=== PATIENT | female | born 1975 | race Caucasian/White ===

== ENCOUNTER 2018-02-10 14:50 | Emergency (ER) | payer MEDICAID ==
[~2018-02-10] VITALS: Ht 152.4 cm; Wt 105.0 kg
[2018-02-10 16:25] LABS: BASOPHILS % (AUTO) 0.1 % (0-1); EOSINOPHILS # (AUTO) 0.6 X10'3 (0-0.9); EOSINOPHILS % (AUTO) 5.3 % (0-6); HEMATOCRIT 37.3 % (35.0-45.0); HEMOGLOBIN 12.8 g/dl (12.0-16.0); LYMPHOCYTES # (AUTO) 2.4 X10'3 (1.1-4.8); LYMPHOCYTES % (AUTO) 20.9 % (21-51); MEAN CORPUSCULAR HEMOGLOBIN 28.8 PG (27.0-31.0); MEAN CORPUSCULAR HGB CONC 34.2 % (33.0-36.5); MEAN CORPUSCULAR VOLUME 84.1 FL (78-98); MEAN PLATELET VOLUME 7.5 FL (7.4-10.4); MONOCYTES # (AUTO) 0.6 X10'3 (0-0.9); MONOCYTES % (AUTO) 5.2 % (2-12); NEUTROPHILS # (AUTO) 7.8 X10'3 (1.8-7.7); NEUTROPHILS % (AUTO) 68.5 % (42-75); PLATELET COUNT 299 X10'3 (140-440); RED BLOOD COUNT 4.43 X10'6 (4.20-5.60); RED CELL DISTRIBUTION WIDTH 15.1 % (11.5-14.5); WHITE BLOOD COUNT 11.4 X10'3 (4.5-11.0)
[2018-02-10 16:40] LABS: ALANINE AMINOTRANSFERASE 51 U/L (12-78); ALBUMIN 3.7 G/DL (3.4-5.0); ALBUMIN/GLOBULIN RATIO 0.9 (1.1-1.5); ALKALINE PHOSPHATASE 45 IU/L (46-116); ANION GAP 13 (8-16); ASPARTATE AMINO TRANSFERASE 40 U/L (10-37); BILIRUBIN,TOTAL 0.5 MG/DL (0.1-1.0); BLOOD UREA NITROGEN 16 MG/DL (7-18); BUN/CREATININE RATIO 18.6 (6.6-38.0); CALCIUM 9.3 MG/DL (8.5-10.1); CHLORIDE 106 MMOL/L (99-107); CREATININE 0.86 MG/DL (0.40-0.90); GLUCOSE 109 MG/DL (70-104); MAGNESIUM 1.7 MG/DL (1.5-2.4); POTASSIUM 3.3 MMOL/L (3.5-5.1); SODIUM 143 MMOL/L (135-145); TOTAL CARBON DIOXIDE 24.3 MMOL/L (24-32); TOTAL PROTEIN 7.7 G/DL (6.4-8.2); eGFR 73 ML/MIN
[2018-02-10 17:00] LABS: HCG SERUM QL NEGATIVE
[2018-02-10] MEDS ORDERED: potassium Cl oral solution 20 MEQ/15 ML PO ONE (17:20)
[2018-02-10] MEDS ORDERED: GABA-532 PO (17:45)
[2018-02-10 18:01] VITALS: BP 187/108
== END 2018-02-10 18:03 | disposition home or self-care (01) ==
LOC: ER 14:51
DX: E87.6 Hypokalemia (principal); M79.605 Pain in left leg; M79.604 Pain in right leg; I10 Essential (primary) hypertension; Z86.73 Personal history of transient ischemic attack (TIA), and cerebral infarction without residual deficits; Z90.710 Acquired absence of both cervix and uterus; Z88.6 Allergy status to analgesic agent; Z79.899 Other long term (current) drug therapy
CPT/HCPCS: 36415; 80053; 83735; 84703; 85025; 99284

== ENCOUNTER 2019-07-03 11:06 | Outpatient (CLI) | payer MEDICAID ==
[~2019-07-03 11:06] MED LIST: GABA-532 PO
== END 2019-07-03 23:59 | disposition home or self-care (01) ==
LOC: RAD 11:06
PROVIDERS: ATTEND Family Medicine
DX: R56.9 Unspecified convulsions (principal); F41.9 Anxiety disorder, unspecified; F31.9 Bipolar disorder, unspecified
CPT/HCPCS: 95816

== ENCOUNTER 2019-07-20 13:00 | Emergency (ER) | payer MEDICAID ==
[~2019-07-20] VITALS: Ht 152.4 cm; Wt 92.0 kg
[2019-07-20 13:48] LABS: ALANINE AMINOTRANSFERASE 21 U/L (12-78); ALBUMIN 3.5 G/DL (3.4-5.0); ALKALINE PHOSPHATASE 39 IU/L (46-116); ANION GAP 12 (8-16); ASPARTATE AMINO TRANSFERASE 12 U/L (10-37); BILIRUBIN,TOTAL 0.5 MG/DL (0.1-1.0); BLOOD UREA NITROGEN 12 MG/DL (7-18); BUN/CREATININE RATIO 14.1 (6.6-38.0); CALCIUM 8.4 MG/DL (8.5-10.1); CHLORIDE 106 MMOL/L (99-107); CREATININE 0.85 MG/DL (0.40-0.90); GLUCOSE 97 MG/DL (70-104); POTASSIUM 2.5 MMOL/L (3.5-5.1); SODIUM 145 MMOL/L (135-145); TOTAL CARBON DIOXIDE 27.4 MMOL/L (24-32); eGFR 73 ML/MIN
[2019-07-20] MEDS ORDERED: POTASSIUM BICARB 20meq eff tab 20 MEQ TABLET.EFF PO ONE (13:55)
[2019-07-20 14:07] LABS: MAGNESIUM 1.2 MG/DL (1.5-2.4)
[2019-07-20] MEDS: potassium Cl 10 mEq/100mL bag IV SCH ×2 (14:19→15:44)
--- NOTE | 2019-07-20 14:20 | NUR ---
DR MAHER INFORMED OF BP
[2019-07-20] MEDS ORDERED: magnesium 2GM in 50ml NS 50 ML IV ONE (15:05)
[2019-07-20] MEDS ORDERED: MAGN500C16 PO (15:10)
[2019-07-20] MEDS ORDERED: enalaprilat dihydrate 2.5mg/2ml vial IV ONE (17:10)
[2019-07-20 17:32] VITALS: BP 195/113
== END 2019-07-20 17:40 | disposition home or self-care (01) ==
LOC: ER 13:01
DX: E87.6 Hypokalemia (principal); E83.42 Hypomagnesemia; R19.7 Diarrhea, unspecified; I10 Essential (primary) hypertension; F32.9 Major depressive disorder, single episode, unspecified; Z86.73 Personal history of transient ischemic attack (TIA), and cerebral infarction without residual deficits; Z90.710 Acquired absence of both cervix and uterus; Z88.6 Allergy status to analgesic agent; Z79.899 Other long term (current) drug therapy
CPT/HCPCS: 36415; 80053; 83735; 96365; 96366; 96368; 96375; 99283; J3475; J3480

== ENCOUNTER 2019-08-17 17:16 | Inpatient (IN) | payer MEDICAID ==
[~2019-08-17] VITALS: Ht 154.9 cm; Wt 80.0 kg
[~2019-08-17 17:16] MED LIST changes: +MAGN500C16 PO
[2019-08-17 18:12] LABS: ALANINE AMINOTRANSFERASE 22 U/L (12-78); ALBUMIN 3.7 G/DL (3.4-5.0); ALKALINE PHOSPHATASE 45 IU/L (46-116); ANION GAP 9 (8-16); ASPARTATE AMINO TRANSFERASE 15 U/L (10-37); BILIRUBIN,TOTAL 0.5 MG/DL (0.1-1.0); BLOOD UREA NITROGEN 11 MG/DL (7-18); BUN/CREATININE RATIO 12.2 (6.6-38.0); CALCIUM 8.8 MG/DL (8.5-10.1); CHLORIDE 104 MMOL/L (99-107); GLUCOSE 79 MG/DL (70-104); SODIUM 144 MMOL/L (135-145); TOTAL CARBON DIOXIDE 31.1 MMOL/L (24-32); TOTAL PROTEIN 7.5 G/DL (6.4-8.2); eGFR 68 ML/MIN
[2019-08-17 18:16] LABS: BASOPHILS # (AUTO) 0.1 X10'3 (0-0.2); BASOPHILS % (AUTO) 0.6 % (0-1); EOSINOPHILS # (AUTO) 0.2 X10'3 (0-0.9); EOSINOPHILS % (AUTO) 1.7 % (0-6); HEMATOCRIT 35.1 % (35.0-45.0); HEMOGLOBIN 12.1 g/dl (12.0-16.0); LYMPHOCYTES % (AUTO) 34.6 % (21-51); MEAN CORPUSCULAR HEMOGLOBIN 29.2 PG (27.0-31.0); MEAN CORPUSCULAR HGB CONC 34.4 g/dL (33.0-36.5); MEAN CORPUSCULAR VOLUME 84.9 FL (78-98); MEAN PLATELET VOLUME 7.4 FL (7.4-10.4); MONOCYTES # (AUTO) 0.6 X10'3 (0-0.9); NEUTROPHILS # (AUTO) 6.7 X10'3 (1.8-7.7); NEUTROPHILS % (AUTO) 58.1 % (42-75); PLATELET COUNT 328 X10'3 (140-440); RED BLOOD COUNT 4.13 X10'6 (4.20-5.60); WHITE BLOOD COUNT 11.5 X10'3 (4.5-11.0)
[2019-08-17 18:18] LABS: POTASSIUM 2.3 MMOL/L (3.5-5.1)
[2019-08-17] MEDS ORDERED: potassium Cl 20 mEq SR tablet PO STA (18:20)
[2019-08-17] MEDS ORDERED: potassium 10mEq/100ml NS w/LIDOcaine (10mg/bag) IV SCH (19:35)
[2019-08-17] MEDS ORDERED: magnesium 2GM in 50ml NS 50 ML IV SCH (19:35)
[2019-08-17] MEDS ORDERED: potassium Cl 20 mEq SR tablet PO ONE (19:35)
[2019-08-17] MEDS ORDERED: potassium CL 10mEq/100ml bag 100 ML IV ONE (19:40)
[2019-08-17 19:42] LABS: MAGNESIUM 1.4 MG/DL (1.5-2.4)
[2019-08-17] MEDS ORDERED: acetaminophen 325mg tablet PO ONE (21:05)
[2019-08-17] MEDS ORDERED: POTA20TA19 PO (23:04)
--- NOTE | 2019-08-17 23:41 | NUR ---
UNABLE TO COMPLETE MED REC, PT DOES NOT RECALL HOME MEDICATIONS
[2019-08-18] MEDS ORDERED: magnesium 2GM in 50ml NS 50 ML IV PRN (02:25)
[2019-08-18] MEDS ORDERED: dextrose ORAL solution 15 GM/59 ML bottle PO PRN ×2 (02:25)
[2019-08-18] MEDS ORDERED: dextrose 50%-water 50ml dispensing syringe IV PRN ×2 (02:25)
[2019-08-18] MEDS ORDERED: acetaminophen 325mg tablet PO PRN (02:25)
[2019-08-18] MEDS ORDERED: glucagon, human recombinant 1mg kit SUBCUT PRN (02:25)
[2019-08-18] MEDS ORDERED: insulin Lispro (HumaLOG) vial - multi-dose SQ SCH (02:25)
[2019-08-18] MEDS ORDERED: potassium CL 10mEq/100ml bag 100 ML IV PRN ×2 (02:25)
[2019-08-18] MEDS ORDERED: MESSAGE TO PHARMACY PO ONE (02:25)
[2019-08-18] MEDS ORDERED: magnesium 4gm in 100ml NS 100 ML IV PRN (02:25)
[2019-08-18] MEDS ORDERED: potassium Cl 20 mEq SR tablet PO PRN (02:25)
[2019-08-18] MEDS ORDERED: magnesium Cl slow-release 64mg tablet PO PRN (02:25)
[2019-08-18] MEDS ORDERED: ondansetron/PF 4mg/2ml inj IV PRN (02:25)
[2019-08-18] MEDS ORDERED: magnesium hydroxide 30ml (MOM) UD suspension PO PRN (02:25)
[2019-08-18] MEDS ORDERED: mag hydrox/Alum hydrox/simeth 30ml oral suspension PO PRN (02:25)
[2019-08-18] MEDS: potassium Cl 20mEq in NS 1,000 ML IV SCH ×3 (02:47→22:01)
[2019-08-18 02:52] LABS: HEMOGLOBIN A1C 5.7 % (4.5-6.2)
--- NOTE | 2019-08-18 03:05 | NUR ---
Received report from ED from JOSE DANIEL Foley.
--- NOTE | 2019-08-18 03:20 | NUR ---
Pt brought to the floor via gurney, ambulated to bed, assumed patient care.
[2019-08-18 03:45] VITALS: BP 183/100
[2019-08-18 06:00] VITALS: BP 178/92
--- NOTE | 2019-08-18 06:26 | NUR ---
Report given to JOSE DANIEL Corbett.
--- NOTE | 2019-08-18 06:40 | NUR ---
Patient in room [facility]TH[facility] 4015. I have received report from Rachel SKY and had the opportunity to ask questions and assume patient care.
[2019-08-18] MEDS: K and/or MAG REPLACEMENT MC SCH (07:04)
[2019-08-18] MEDS: gabapentin 300mg capsule PO SCH ×3 (07:14→20:05)
[2019-08-18] MEDS: magnesium oxide 400mg tablet PO SCH (07:15)
[2019-08-18] MEDS: enoxaparin 40mg/0.4ml syringe SQ SCH (07:17)
[2019-08-18 10:00] VITALS: BP 175/91
[2019-08-18 10:16] LABS: BASOPHILS % (AUTO) 0.3 % (0-1); EOSINOPHILS # (AUTO) 0.2 X10'3 (0-0.9); EOSINOPHILS % (AUTO) 1.8 % (0-6); HEMOGLOBIN 11.1 g/dl (12.0-16.0); LYMPHOCYTES # (AUTO) 2.9 X10'3 (1.1-4.8); LYMPHOCYTES % (AUTO) 33.3 % (21-51); MEAN CORPUSCULAR HEMOGLOBIN 29.2 PG (27.0-31.0); MEAN CORPUSCULAR HGB CONC 34.7 g/dL (33.0-36.5); MEAN CORPUSCULAR VOLUME 84.2 FL (78-98); MEAN PLATELET VOLUME 7.3 FL (7.4-10.4); MONOCYTES # (AUTO) 0.4 X10'3 (0-0.9); MONOCYTES % (AUTO) 4.7 % (2-12); NEUTROPHILS # (AUTO) 5.2 X10'3 (1.8-7.7); NEUTROPHILS % (AUTO) 59.9 % (42-75); PLATELET COUNT 257 X10'3 (140-440); RED CELL DISTRIBUTION WIDTH 14.1 % (11.5-14.5); WHITE BLOOD COUNT 8.7 X10'3 (4.5-11.0)
[2019-08-18 10:28] LABS: ALANINE AMINOTRANSFERASE 18 U/L (12-78); ALBUMIN 3.1 G/DL (3.4-5.0); ALBUMIN/GLOBULIN RATIO 0.9 (1.1-1.5); ALKALINE PHOSPHATASE 42 IU/L (46-116); ANION GAP 4 (8-16); ASPARTATE AMINO TRANSFERASE 12 U/L (10-37); BILIRUBIN,TOTAL 0.5 MG/DL (0.1-1.0); BLOOD UREA NITROGEN 8 MG/DL (7-18); BUN/CREATININE RATIO 10.3 (6.6-38.0); CALCIUM 7.5 MG/DL (8.5-10.1); CHLORIDE 107 MMOL/L (99-107); CREATININE 0.78 MG/DL (0.40-0.90); GLUCOSE 140 MG/DL (70-104); MAGNESIUM 1.9 MG/DL (1.5-2.4); PHOSPHORUS 1.9 MG/DL (2.3-4.5); POTASSIUM 3.2 MMOL/L (3.5-5.1); SODIUM 143 MMOL/L (135-145); TOTAL CARBON DIOXIDE 31.8 MMOL/L (24-32); TOTAL PROTEIN 6.5 G/DL (6.4-8.2); eGFR 81 ML/MIN
[2019-08-18] MEDS: potassium Cl 20 mEq SR tablet PO PRN (12:05)
--- NOTE | 2019-08-18 16:30 | NUR ---
DM Consult: A1C <7 and not appropriate for DM ed at this time. Pt admit w/ chronically low potassium hx; not on any diuretics at home per EMR. Will continue to monitor. Addendum: 08/18/19 at [address] Amended: Links added.
[2019-08-18 18:00] VITALS: BP 167/102
--- NOTE | 2019-08-18 18:10 | NUR ---
Received report from JOSE DANIEL Corbett. Assumed patient care.
--- NOTE | 2019-08-18 18:22 | NUR ---
Problems reprioritized. Patient report given, questions answered & plan of care reviewed with Rachel SKY.
[2019-08-18] MEDS: insulin glargine (Lantus) pen - multi-dose SQ SCH (21:00)
[2019-08-18] MEDS: hydrALAZINE 20mg/ml inj. IV PRN (21:22)
[2019-08-18 22:00] VITALS: BP 195/103
[2019-08-18 22:45] VITALS: BP 171/86
[2019-08-19] VITALS (11 sets, daily range): BP systolic 154–200; BP diastolic 73–120
[2019-08-19 06:02] LABS: BASOPHILS % (AUTO) 0.5 % (0-1); EOSINOPHILS # (AUTO) 0.1 X10'3 (0-0.9); EOSINOPHILS % (AUTO) 1.8 % (0-6); HEMATOCRIT 31.9 % (35.0-45.0); HEMOGLOBIN 11.1 g/dl (12.0-16.0); LYMPHOCYTES # (AUTO) 2.5 X10'3 (1.1-4.8); MEAN CORPUSCULAR HEMOGLOBIN 29.5 PG (27.0-31.0); MEAN CORPUSCULAR HGB CONC 34.8 g/dL (33.0-36.5); MEAN CORPUSCULAR VOLUME 84.6 FL (78-98); MEAN PLATELET VOLUME 7.5 FL (7.4-10.4); MONOCYTES # (AUTO) 0.4 X10'3 (0-0.9); NEUTROPHILS # (AUTO) 4.6 X10'3 (1.8-7.7); NEUTROPHILS % (AUTO) 59.7 % (42-75); PLATELET COUNT 254 X10'3 (140-440); RED BLOOD COUNT 3.78 X10'6 (4.20-5.60); RED CELL DISTRIBUTION WIDTH 14.1 % (11.5-14.5); WHITE BLOOD COUNT 7.7 X10'3 (4.5-11.0)
[2019-08-19 06:20] LABS: ALANINE AMINOTRANSFERASE 18 U/L (12-78); ALBUMIN 3.1 G/DL (3.4-5.0); ALBUMIN/GLOBULIN RATIO 0.9 (1.1-1.5); ALKALINE PHOSPHATASE 40 IU/L (46-116); ANION GAP 9 (8-16); ASPARTATE AMINO TRANSFERASE 10 U/L (10-37); BILIRUBIN,TOTAL 0.6 MG/DL (0.1-1.0); BLOOD UREA NITROGEN 8 MG/DL (7-18); BUN/CREATININE RATIO 11.8 (6.6-38.0); CALCIUM 7.4 MG/DL (8.5-10.1); CHLORIDE 111 MMOL/L (99-107); CREATININE 0.68 MG/DL (0.40-0.90); GLUCOSE 106 MG/DL (70-104); MAGNESIUM 1.8 MG/DL (1.5-2.4); PHOSPHORUS 1.9 MG/DL (2.3-4.5); POTASSIUM 3.3 MMOL/L (3.5-5.1); SODIUM 145 MMOL/L (135-145); TOTAL CARBON DIOXIDE 25.2 MMOL/L (24-32); TOTAL PROTEIN 6.5 G/DL (6.4-8.2); eGFR > 90 ML/MIN
--- NOTE | 2019-08-19 06:36 | NUR ---
Patient in room [facility]TH[facility] 4015. I have received report from CHARMAINE SKY and had the opportunity to ask questions and assume patient care.
--- NOTE | 2019-08-19 06:36 | NUR ---
Patient report given, questions answered and plan of care reviewed with JOSE DANIEL Burton.
[2019-08-19] MEDS: magnesium oxide 400mg tablet PO SCH (07:21)
[2019-08-19] MEDS: gabapentin 300mg capsule PO SCH ×3 (07:22→20:49)
[2019-08-19] MEDS: potassium Cl 20 mEq SR tablet PO PRN ×3 (07:22→20:52)
[2019-08-19] MEDS: enoxaparin 40mg/0.4ml syringe SQ SCH (07:24)
[2019-08-19] MEDS: K and/or MAG REPLACEMENT MC SCH (07:34)
[2019-08-19] MEDS: potassium Cl 20mEq in NS 1,000 ML IV SCH (07:40)
[2019-08-19] MEDS: acetaminophen 325mg tablet PO PRN ×2 (08:01→21:01)
[2019-08-19] MEDS: hydrALAZINE 20mg/ml inj. IV PRN ×2 (11:15→17:22)
--- NOTE | 2019-08-19 11:44 | NUR ---
Student documentation: I have reviewed all interventions, assessments performed and documented by Aria Fraser. Student Medication Administration: For this medication-pass time frame, all medication were reviewed, dispensed, administered and documented per hospital policy by Aria Fraser.
[2019-08-19] MEDS: lisinopril 20mg tablet PO SCH (15:29)
[2019-08-19 15:31] LABS: CLARITY,URINE CLEAR (Clear); COLOR,URINE YELLOW (Yellow); GLUCOSE, URINE NEGATIVE (Neg); KETONES,URINE NEGATIVE (Neg); LEUKOCYTE ESTERASE ,URINE NEGATIVE (Neg); NITRITES, URINE NEGATIVE (Neg); OCCULT BLOOD,URINE LARGE (Neg); PH,URINE 7.5 (4.8-8.0); PROTEIN,URINE NEGATIVE (Neg); UROBILINOGEN,URINE 0.2 E.U/dL (0.2-1.0)
[2019-08-19 15:35] LABS: UA COLLECTION TYPE NON-SPECIFIED
[2019-08-19 15:42] LABS: SQUAMOUS EPITHELIAL CELL,UR FEW /LPF (FEW)
[2019-08-19 15:43] LABS: BACTERIA,URINE FEW /HPF (Neg); RBC,URINE 50-100 /HPF (0-2); WBC,URINE 0-4 /HPF (0-4)
--- NOTE | 2019-08-19 15:59 | NUR ---
SPOKE TO DR. DENIZ ACE'S NURSE RE: NEEDING UPDATED MED LIST, GAVE ORAPHAN NURSE THE FAX NUMBER FOR HER TO FAX [facility]. WILL MAKE DR. KRISHNAMURTHY AWARE ONCE UPDATED HOME MEDS ARE IN.
--- NOTE | 2019-08-19 16:05 | NUR ---
Paged hospitalist, "MAREK Adorno- Crista Ribera in 3015 A med req incomplete, I will page you once updated home meds are in."
[2019-08-19 16:23] LABS: UA EOSINOPHILS RARE EOS /HPF
--- NOTE | 2019-08-19 16:31 | NUR ---
Spoke to patient's family MD, had them fax updated med list to us. Made Dr. Montilla aware of this. Spoke to our pharmacy here, they will put in patient's med list and they are contacting Dr. Montilla once updated.
[2019-08-19] MEDS ORDERED: SPIR25TA5 PO (16:37)
[2019-08-19] MEDS ORDERED: GLIP5TAB13 PO (16:37)
[2019-08-19] MEDS ORDERED: SERT100T PO (16:37)
[2019-08-19] MEDS ORDERED: ASPI-611 PO (16:37)
[2019-08-19] MEDS ORDERED: ATOR10TA70 PO (16:37)
[2019-08-19] MEDS ORDERED: LISI40TA4 PO (16:37)
[2019-08-19] MEDS ORDERED: METF-438 PO (16:37)
[2019-08-19] MEDS ORDERED: DILT240C90 PO (16:37)
[2019-08-19] MEDS ORDERED: ARIP5TAB4 PO (16:37)
[2019-08-19] MEDS ORDERED: METO50TA17 PO (16:37)
[2019-08-19] MEDS ORDERED: POTA10TA36 PO (16:37)
--- NOTE | 2019-08-19 18:19 | NUR ---
Paged hospitalist, "Josephine [phone] Crista Ribera please complete med req at your convenience. Thank you!"
--- NOTE | 2019-08-19 18:21 | NUR ---
Problems reprioritized. Patient report given, questions answered & plan of care reviewed with Grecia SKY.
[2019-08-19] MEDS: insulin glargine (Lantus) pen - multi-dose SQ SCH (20:52)
--- NOTE | 2019-08-19 23:06 | NUR ---
GAVE DYRENIUM, BP NOW 164/85, ICE PACK TO POSTERIOR NECK, VOIDED X2. PAIN RELIEVED, TOLERABLE AT THIS TIME.
[2019-08-20] VITALS (8 sets, daily range): BP systolic 138–210; BP diastolic 71–124
[2019-08-20] MEDS: hydrALAZINE 20mg/ml inj. IV PRN ×2 (02:25→15:40)
--- NOTE | 2019-08-20 02:30 | NUR ---
GAVE DOSE OF HYDRALAZINE 10MG IV FOR BP 176/92, HR 77.
[2019-08-20 06:17] LABS: BASOPHILS % (AUTO) 0.5 % (0-1); EOSINOPHILS # (AUTO) 0.2 X10'3 (0-0.9); HEMATOCRIT 33.6 % (35.0-45.0); HEMOGLOBIN 11.6 g/dl (12.0-16.0); LYMPHOCYTES # (AUTO) 3.1 X10'3 (1.1-4.8); LYMPHOCYTES % (AUTO) 33.4 % (21-51); MEAN CORPUSCULAR HEMOGLOBIN 29.4 PG (27.0-31.0); MEAN CORPUSCULAR HGB CONC 34.4 g/dL (33.0-36.5); MEAN CORPUSCULAR VOLUME 85.6 FL (78-98); MEAN PLATELET VOLUME 7.5 FL (7.4-10.4); MONOCYTES # (AUTO) 0.5 X10'3 (0-0.9); MONOCYTES % (AUTO) 5.2 % (2-12); NEUTROPHILS # (AUTO) 5.5 X10'3 (1.8-7.7); NEUTROPHILS % (AUTO) 58.9 % (42-75); PLATELET COUNT 303 X10'3 (140-440); RED BLOOD COUNT 3.93 X10'6 (4.20-5.60); RED CELL DISTRIBUTION WIDTH 14.7 % (11.5-14.5); WHITE BLOOD COUNT 9.3 X10'3 (4.5-11.0)
[2019-08-20 06:32] LABS: ALANINE AMINOTRANSFERASE 18 U/L (12-78); ALBUMIN 3.2 G/DL (3.4-5.0); ALBUMIN/GLOBULIN RATIO 0.9 (1.1-1.5); ALKALINE PHOSPHATASE 43 IU/L (46-116); ANION GAP 12 (8-16); ASPARTATE AMINO TRANSFERASE 17 U/L (10-37); BILIRUBIN,TOTAL 0.5 MG/DL (0.1-1.0); BLOOD UREA NITROGEN 9 MG/DL (7-18); BUN/CREATININE RATIO 11.8 (6.6-38.0); CALCIUM 8.8 MG/DL (8.5-10.1); CHLORIDE 109 MMOL/L (99-107); CREATININE 0.76 MG/DL (0.40-0.90); GLUCOSE 109 MG/DL (70-104); MAGNESIUM 1.9 MG/DL (1.5-2.4); PHOSPHORUS 2.7 MG/DL (2.3-4.5); POTASSIUM 3.2 MMOL/L (3.5-5.1); SODIUM 143 MMOL/L (135-145); TOTAL CARBON DIOXIDE 22.3 MMOL/L (24-32); TOTAL PROTEIN 6.9 G/DL (6.4-8.2); eGFR 83 ML/MIN
--- NOTE | 2019-08-20 07:04 | NUR ---
REPORT GIVEN TO JOSE DANIEL TRACY.
[2019-08-20] MEDS: gabapentin 300mg capsule PO SCH ×3 (08:10→20:22)
[2019-08-20] MEDS: lisinopril 20mg tablet PO SCH (08:10)
[2019-08-20] MEDS: magnesium oxide 400mg tablet PO SCH (08:10)
[2019-08-20] MEDS: potassium Cl 20 mEq SR tablet PO PRN ×3 (08:11→19:35)
[2019-08-20] MEDS: enoxaparin 40mg/0.4ml syringe SQ SCH (08:13)
[2019-08-20] MEDS: acetaminophen 325mg tablet PO PRN ×2 (08:19→15:42)
[2019-08-20] MEDS: K and/or MAG REPLACEMENT MC SCH (08:20)
--- NOTE | 2019-08-20 16:19 | NUR ---
PAGER ID: [phone] MESSAGE: Mitzy [phone] re Crista Ribera in [id number]- did you want a ct scan w contrast? Pt has stated allergy to iodine but wants study. Premedicate with benadry? Also pt wants Ativan. Pls call me
[2019-08-20] MEDS ORDERED: LORazepam 0.5 MG tablet PO PRN (16:25)
[2019-08-20] MEDS ORDERED: diphenhydrAMINE 25mg capsule PO ONE (16:25)
[2019-08-20] MEDS ORDERED: iohexol 300mg/ml 100ml inj. ONE (16:47)
--- NOTE | 2019-08-20 17:32 | NUR ---
PAGER ID: [phone] MESSAGE: Mitzy [phone] re Crista mckeon in - bp is 200/102 after hydralazine, Ativan, Benadryl. There are meds on med rec not addressed, such as Cardizem. I got the note from Dr Fisher faxed here for your review. What do I do about the BP?
--- NOTE | 2019-08-20 18:00 | NUR ---
Received report from Mitzy SKY. assumed care of patient.
[2019-08-20] MEDS: metoprolol tartrate 50mg tablet PO SCH (19:05)
[2019-08-20] MEDS: diltiazem CD 120mg capsule (once-daily) PO SCH (19:36)
[2019-08-20] MEDS: insulin glargine (Lantus) pen - multi-dose SQ SCH (20:30)
[2019-08-21 06:00] VITALS: BP 139/75
--- NOTE | 2019-08-21 06:20 | NUR ---
Gave report to Mitzy SKY.
[2019-08-21 06:21] LABS: BASOPHILS # (AUTO) 0.1 X10'3 (0-0.2); BASOPHILS % (AUTO) 0.6 % (0-1); EOSINOPHILS # (AUTO) 0.1 X10'3 (0-0.9); EOSINOPHILS % (AUTO) 1.3 % (0-6); HEMATOCRIT 35.6 % (35.0-45.0); HEMOGLOBIN 12.1 g/dl (12.0-16.0); LYMPHOCYTES # (AUTO) 2.9 X10'3 (1.1-4.8); LYMPHOCYTES % (AUTO) 32.3 % (21-51); MEAN CORPUSCULAR HEMOGLOBIN 29.2 PG (27.0-31.0); MEAN CORPUSCULAR HGB CONC 33.8 g/dL (33.0-36.5); MEAN CORPUSCULAR VOLUME 86.3 FL (78-98); MEAN PLATELET VOLUME 7.4 FL (7.4-10.4); MONOCYTES # (AUTO) 0.5 X10'3 (0-0.9); MONOCYTES % (AUTO) 5.3 % (2-12); NEUTROPHILS # (AUTO) 5.5 X10'3 (1.8-7.7); NEUTROPHILS % (AUTO) 60.5 % (42-75); PLATELET COUNT 331 X10'3 (140-440); RED BLOOD COUNT 4.13 X10'6 (4.20-5.60); RED CELL DISTRIBUTION WIDTH 14.7 % (11.5-14.5); WHITE BLOOD COUNT 9.1 X10'3 (4.5-11.0)
[2019-08-21 06:32] LABS: ALANINE AMINOTRANSFERASE 17 U/L (12-78); ALBUMIN 3.3 G/DL (3.4-5.0); ALBUMIN/GLOBULIN RATIO 0.9 (1.1-1.5); ALKALINE PHOSPHATASE 41 IU/L (46-116); ANION GAP 8 (8-16); ASPARTATE AMINO TRANSFERASE 11 U/L (10-37); BILIRUBIN,TOTAL 0.5 MG/DL (0.1-1.0); BLOOD UREA NITROGEN 18 MG/DL (7-18); BUN/CREATININE RATIO 20.7 (6.6-38.0); CALCIUM 8.8 MG/DL (8.5-10.1); CHLORIDE 108 MMOL/L (99-107); CREATININE 0.87 MG/DL (0.40-0.90); GLUCOSE 109 MG/DL (70-104); MAGNESIUM 1.8 MG/DL (1.5-2.4); PHOSPHORUS 3.7 MG/DL (2.3-4.5); POTASSIUM 3.6 MMOL/L (3.5-5.1); SODIUM 138 MMOL/L (135-145); TOTAL CARBON DIOXIDE 21.9 MMOL/L (24-32); eGFR 71 ML/MIN
[2019-08-21] MEDS: K and/or MAG REPLACEMENT MC SCH (06:45)
[2019-08-21] MEDS: metoprolol tartrate 50mg tablet PO SCH (07:58)
[2019-08-21] MEDS: magnesium oxide 400mg tablet PO SCH (07:58)
[2019-08-21] MEDS: lisinopril 20mg tablet PO SCH (07:58)
[2019-08-21] MEDS: gabapentin 300mg capsule PO SCH ×2 (07:58→13:21)
[2019-08-21] MEDS: enoxaparin 40mg/0.4ml syringe SQ SCH (07:59)
[2019-08-21] MEDS: diltiazem CD 120mg capsule (once-daily) PO SCH (08:00)
[2019-08-21] MEDS ORDERED: aripiprazole 5mg tablet PO SCH (08:00)
[2019-08-21] MEDS ORDERED: diltiazem CD 120mg capsule (once-daily) PO SCH ×2 (08:00→20:00)
[2019-08-21] MEDS: acetaminophen 325mg tablet PO PRN (08:07)
[2019-08-21 10:00] VITALS: BP 139/75
--- NOTE | 2019-08-21 12:29 | NUR ---
PAGER ID: [phone] MESSAGE: Mitzy [phone] re Crista Ribera in [id number]- her current bp is 126/75 HR 55. I held the Cardizem this am since it is Q24 and she started it last night. Do you want me to give it or reschedule for tonight? ALso, can we start her Zoloft 200 mg too?
[2019-08-21 12:30] VITALS: BP 126/75
[2019-08-21] MEDS ORDERED: sertraline 50mg tablet PO SCH (13:00)
[2019-08-21] MEDS ORDERED: POTA10TA36 PO (16:41)
[2019-08-21] MEDS ORDERED: SERT50TA10 PO (16:41)
[2019-08-21] MEDS ORDERED: METO25TA6 PO (16:41)
[2019-08-21] MEDS ORDERED: DYR50C PO (16:41)
[2019-08-21] MEDS ORDERED: METF-950 PO (16:56)
== END 2019-08-21 17:30 | disposition home or self-care (01) | DRG 425 ==
LOC: ER 17:17 → ED HOLD 08-18 03:21 → ORTHO 4S 08-18 03:30 → CMPBEDREQ 08-18 03:46 → OBSVTOIN 08-18 14:45
PROVIDERS: ADMIT Family Medicine; ATTEND Internal Medicine
PROC: BW211ZZ Computerized Tomography (CT Scan) of Abdomen and Pelvis using Low Osmolar Contrast (ICD-10-PCS; principal; 2019-08-20)
DX: E87.6 Hypokalemia (principal); E87.3 Alkalosis; E11.9 Type 2 diabetes mellitus without complications; F32.9 Major depressive disorder, single episode, unspecified; E66.9 Obesity, unspecified; E78.5 Hyperlipidemia, unspecified; E87.5 Hyperkalemia; F41.9 Anxiety disorder, unspecified; I10 Essential (primary) hypertension; I69.341 Monoplegia of lower limb following cerebral infarction affecting right dominant side; Z90.710 Acquired absence of both cervix and uterus; Z91.041 Radiographic dye allergy status; Z68.33 Body mass index [BMI] 33.0-33.9, adult; Z98.891 History of uterine scar from previous surgery
CPT/HCPCS: 36415; 71045; 74177; 76775; 80053; 81001; 82436; 82570; 82948; 83036; 83735; 83935; 84100; 84132; 84133; 84156; 84300; 85025; 87081; 87207; 93005; 96365; 96366; 96368; 96372; 99285; G0378; J0360; J1650; J1815; J3475; J3480; Q0163; Q9967

== ENCOUNTER → 2019-09-11 | Emergency (ER) | payer MEDICAID ==
[~2019-09-11] VITALS: Ht 172.7 cm; Wt 94.0 kg
[~2019-09-11] MED LIST changes: +ARIP5TAB14 PO; +ASPI-611 PO; +ATOR10TA70 PO; +DILT240C90 PO; +DYR50C PO; +LISI40TA4 PO; +LORazepam 1 MG tablet PO ONE; +METF-950 PO; +METO25TA6 PO; +POTA10TA36 PO; +SERT50TA10 PO; +cloNIDine 0.1 mg tablet PO STA; +hydrALAZINE 25 MG tablet PO SCH; +hydrALAZINE 25 MG tablet PO STA; +labetalol 20mg/4ml (5mg/ml) syringe IV ONE; +metoprolol tartrate 50mg tablet PO ONE; +potassium Cl 20 mEq SR tablet PO STA
[2019-09-11 04:32] LABS: BASOPHILS # (AUTO) 0.1 X10'3 (0-0.2); BASOPHILS % (AUTO) 0.7 % (0-1); EOSINOPHILS # (AUTO) 0.2 X10'3 (0-0.9); EOSINOPHILS % (AUTO) 1.6 % (0-6); HEMOGLOBIN 12.2 g/dl (12.0-16.0); LYMPHOCYTES # (AUTO) 3.7 X10'3 (1.1-4.8); LYMPHOCYTES % (AUTO) 30.3 % (21-51); MEAN CORPUSCULAR HEMOGLOBIN 28.7 PG (27.0-31.0); MEAN CORPUSCULAR HGB CONC 34.7 g/dL (33.0-36.5); MEAN CORPUSCULAR VOLUME 82.8 FL (78-98); MEAN PLATELET VOLUME 7.1 FL (7.4-10.4); MONOCYTES # (AUTO) 0.7 X10'3 (0-0.9); NEUTROPHILS # (AUTO) 7.6 X10'3 (1.8-7.7); NEUTROPHILS % (AUTO) 61.4 % (42-75); PLATELET COUNT 355 X10'3 (140-440); RED BLOOD COUNT 4.23 X10'6 (4.20-5.60); WHITE BLOOD COUNT 12.3 X10'3 (4.5-11.0)
--- NOTE | 2019-09-11 04:38 | NUR ---
PIV PLACED, LABS DRAWN, BP 217/115. GIVEN ATIVAN 2 MG TABS AND HYDRALAZINE 25 MG TABS. PT IS POLITE AND COOPERATIVE WITH CARE.
[2019-09-11 04:44] LABS: ALANINE AMINOTRANSFERASE 20 U/L (12-78); ALBUMIN 3.6 G/DL (3.4-5.0); ALBUMIN/GLOBULIN RATIO 0.9 (1.1-1.5); ALKALINE PHOSPHATASE 50 IU/L (46-116); ANION GAP 6 (8-16); ASPARTATE AMINO TRANSFERASE 16 U/L (10-37); BILIRUBIN,TOTAL 0.5 MG/DL (0.1-1.0); BLOOD UREA NITROGEN 16 MG/DL (7-18); BUN/CREATININE RATIO 17.2 (6.6-38.0); CALCIUM 8.9 MG/DL (8.5-10.1); CHLORIDE 103 MMOL/L (99-107); CREATININE 0.93 MG/DL (0.40-0.90); GLUCOSE 173 MG/DL (70-104); SODIUM 141 MMOL/L (135-145); TOTAL CARBON DIOXIDE 32.4 MMOL/L (24-32); TOTAL PROTEIN 7.6 G/DL (6.4-8.2); eGFR 66 ML/MIN
[2019-09-11 04:47] LABS: POTASSIUM 2.8 MMOL/L (3.5-5.1)
--- NOTE | 2019-09-11 05:02 | NUR ---
DR. DIAZ AT BEDSIDE FOR REEVAL. MINIMAL CHANGE TO BP. NEW ORDERS FOR HYDRALAZINE 25 MG TAB (AGAIN), METOPROLOL 50 MG TAB, AND KDUR 40 MEQ FOR K OF 2.8. PT UP TO BR WITH SBA,
--- NOTE | 2019-09-11 05:59 | NUR ---
DR. DIAZ UPDATED LAKISHA PT CURRENTLY SLEEPING, BP REMAINS HIGH, 212/124. CLONADINE TAB NOW ORDERED
--- NOTE | 2019-09-11 06:42 | NUR ---
PT RESTING IN POC. MD OHLFS AT BEDSIDE. NEW ORDERS RECEIVED AND IN PROCESS.
--- NOTE | 2019-09-11 07:20 | NUR ---
PT JUST UP TO BR WITHOUT UA OBTAINED, ADVISED.
[2019-09-11 08:34] VITALS: BP 150/80
== END | disposition home or self-care (01) ==
LOC: ER 03:49
DX: F41.9 Anxiety disorder, unspecified (principal); I10 Essential (primary) hypertension; E11.9 Type 2 diabetes mellitus without complications; F32.9 Major depressive disorder, single episode, unspecified; Z86.73 Personal history of transient ischemic attack (TIA), and cerebral infarction without residual deficits; Z90.710 Acquired absence of both cervix and uterus; Z98.890 Other specified postprocedural states; Z91.041 Radiographic dye allergy status; Z79.82 Long term (current) use of aspirin; Z79.899 Other long term (current) drug therapy
CPT/HCPCS: 36415; 80053; 85025; 96374; 99284; J3490

== ENCOUNTER 2019-10-03 15:32 | Emergency (ER) | payer MEDICAID ==
[~2019-10-03] VITALS: Ht 152.4 cm; Wt 90.7 kg
[~2019-10-03 15:32] MED LIST changes: +LIDOcaine 1% 30ml preserv. free vial ONE; -LORazepam 1 MG tablet PO ONE; -cloNIDine 0.1 mg tablet PO STA; -hydrALAZINE 25 MG tablet PO SCH; -hydrALAZINE 25 MG tablet PO STA; -labetalol 20mg/4ml (5mg/ml) syringe IV ONE; -metoprolol tartrate 50mg tablet PO ONE; -potassium Cl 20 mEq SR tablet PO STA
[2019-10-03] MEDS ORDERED: ondansetron 4mg rapidly disintigrating tab PO ONE (16:25)
[2019-10-03] MEDS ORDERED: ketorolac trometh inj. 60 MG/2 ML VIAL IM ONE (16:25)
[2019-10-03] MEDS ORDERED: HYDROcodone/acetaminophen 5mg/325mg tablet PO ONE (16:25)
[2019-10-03] MEDS ORDERED: TETanus/Pertussis (Acell)/Diphther VAC/PF (Tdap-Adult) 0.5ml syringe IMVAC ONE (16:30)
[2019-10-03] MEDS ORDERED: SULF1TAB49 PO (16:37)
[2019-10-03] MEDS ORDERED: CEPH500C5 PO (16:37)
[2019-10-03] MEDS ORDERED: HYDR-4383 PO (17:50)
[2019-10-03] MEDS ORDERED: cephalexin 250mg capsule PO ONE (18:00)
[2019-10-03] MEDS ORDERED: sulfamethoxazole/trimethoprim DS (800/160mg) tablet PO ONE (18:00)
[2019-10-03 19:30] VITALS: BP 170/87
== END 2019-10-03 19:30 | disposition home or self-care (01) ==
LOC: ER 15:33
DX: N76.4 Abscess of vulva (principal); I10 Essential (primary) hypertension; E11.9 Type 2 diabetes mellitus without complications; F32.9 Major depressive disorder, single episode, unspecified; Z90.710 Acquired absence of both cervix and uterus; Z86.73 Personal history of transient ischemic attack (TIA), and cerebral infarction without residual deficits; Z98.890 Other specified postprocedural states; Z91.041 Radiographic dye allergy status; Z79.82 Long term (current) use of aspirin; Z79.899 Other long term (current) drug therapy
CPT/HCPCS: 56405; 90471; 90715; 96372; 99284; J1885; J2001

== ENCOUNTER 2019-10-07 22:07 | Emergency (ER) | payer MEDICAID ==
[~2019-10-07] VITALS: Ht 152.4 cm; Wt 90.0 kg
[~2019-10-07 22:07] MED LIST changes: +CEPH500C5 PO; +HYDR-4383 PO; -LIDOcaine 1% 30ml preserv. free vial ONE; +SULF1TAB49 PO
[2019-10-07 23:05] VITALS: BP 172/96
--- NOTE | 2019-10-07 23:07 | NUR ---
CHAPERONED DR DIAZ FOR PT EXAM
== END 2019-10-07 23:29 | disposition home or self-care (01) ==
LOC: ER 22:08
DX: Z48.00 Encounter for change or removal of nonsurgical wound dressing (principal); I10 Essential (primary) hypertension; E11.9 Type 2 diabetes mellitus without complications; F32.9 Major depressive disorder, single episode, unspecified; Z90.710 Acquired absence of both cervix and uterus; Z98.890 Other specified postprocedural states; Z86.73 Personal history of transient ischemic attack (TIA), and cerebral infarction without residual deficits; Z91.041 Radiographic dye allergy status; Z79.82 Long term (current) use of aspirin; Z79.84 Long term (current) use of oral hypoglycemic drugs; Z79.899 Other long term (current) drug therapy
CPT/HCPCS: 99283

== ENCOUNTER 2019-11-15 03:33 | Emergency (ER) | payer MEDICAID ==
[~2019-11-15] VITALS: Ht 152.4 cm; Wt 95.5 kg
[~2019-11-15 03:33] MED LIST changes: -SULF1TAB49 PO
[2019-11-15 03:34] VITALS: BP 94/60
[2019-11-15] MEDS ORDERED: HYDROcodone/acetaminophen 5mg/325mg tablet PO ONE (03:50)
[2019-11-15] MEDS ORDERED: HYDR-4383 PO (04:59)
== END 2019-11-15 05:08 | disposition home or self-care (01) ==
LOC: ER 03:33
DX: S02.2XXA Fracture of nasal bones, initial encounter for closed fracture (principal); S00.83XA Contusion of other part of head, initial encounter; I10 Essential (primary) hypertension; E11.9 Type 2 diabetes mellitus without complications; Z86.73 Personal history of transient ischemic attack (TIA), and cerebral infarction without residual deficits; Z98.890 Other specified postprocedural states; Z90.710 Acquired absence of both cervix and uterus; Z79.82 Long term (current) use of aspirin; Z79.899 Other long term (current) drug therapy; Y04.0XXA Assault by unarmed brawl or fight, initial encounter; Y93.89 Activity, other specified; Y92.89 Other specified places as the place of occurrence of the external cause; Y99.9 Unspecified external cause status
CPT/HCPCS: 70450; 70486; 99284

== ENCOUNTER 2019-12-15 15:52 | Emergency (ER) | payer MEDICAID ==
[~2019-12-15] VITALS: Ht 152.4 cm; Wt 99.9 kg
[2019-12-15 16:03] VITALS: BP 201/120
[2019-12-15] MEDS ORDERED: LIDOcaine 1% (10mg/ml) 2ml vial SQ ONE (18:40)
[2019-12-15] MEDS ORDERED: SULF1TAB49 PO (19:00)
== END 2019-12-15 19:22 | disposition home or self-care (01) ==
LOC: ER 15:53
DX: L02.416 Cutaneous abscess of left lower limb (principal); I10 Essential (primary) hypertension; E11.9 Type 2 diabetes mellitus without complications; F32.9 Major depressive disorder, single episode, unspecified; Z90.710 Acquired absence of both cervix and uterus; Z88.8 Allergy status to other drugs, medicaments and biological substances; Z79.82 Long term (current) use of aspirin; Z79.2 Long term (current) use of antibiotics; Z79.899 Other long term (current) drug therapy; Z86.73 Personal history of transient ischemic attack (TIA), and cerebral infarction without residual deficits; Z98.890 Other specified postprocedural states
CPT/HCPCS: 10060; 99284

== ENCOUNTER 2020-02-22 17:06 | Emergency (ER) | payer MEDICAID ==
[~2020-02-22] VITALS: Ht 152.4 cm; Wt 105.0 kg
[2020-02-22] MEDS ORDERED: LIDOcaine 1% W/epiNEPHrine 1:200,000 10ml vial IJ ONE (18:00)
[2020-02-22] MEDS ORDERED: CEPH500C5 PO (18:26)
[2020-02-22] MEDS ORDERED: SULF1TAB49 PO (18:26)
[2020-02-22 18:45] VITALS: BP 171/111
== END 2020-02-22 18:42 | disposition home or self-care (01) ==
LOC: ER 17:07
DX: N76.4 Abscess of vulva (principal); I10 Essential (primary) hypertension; E11.9 Type 2 diabetes mellitus without complications; F32.9 Major depressive disorder, single episode, unspecified; Z86.73 Personal history of transient ischemic attack (TIA), and cerebral infarction without residual deficits; Z90.710 Acquired absence of both cervix and uterus; Z91.041 Radiographic dye allergy status; Z79.82 Long term (current) use of aspirin; Z79.899 Other long term (current) drug therapy; Z98.890 Other specified postprocedural states
CPT/HCPCS: 10060; 87070; 87077; 87186; 99283

== ENCOUNTER 2021-02-12 14:26 | Emergency (ER) | payer MEDICAID ==
[~2021-02-12 14:26] MED LIST changes: +CEPH-585 PO; -CEPH500C5 PO; +LISI40TA13 PO; -LISI40TA4 PO; +LOP25T PO; -METO25TA6 PO; +SERT-433 PO; -SERT50TA10 PO
== END 2021-02-12 18:18 | disposition left against medical advice (07) ==
LOC: ER 14:27
DX: Q89.8 Other specified congenital malformations (principal); Z53.21 Procedure and treatment not carried out due to patient leaving prior to being seen by health care provider